=== PATIENT | male | born 1940 | race Caucasian/White ===

== ENCOUNTER → 2017-04-08 | Outpatient (CLI) | payer OTHER | LOC: RT 13:10 | PROVIDERS: ATTEND Psychiatry & Neurology Neurology | DX: R41.3 Other amnesia (principal) | CPT/HCPCS: 95819 ==

== ENCOUNTER → 2017-04-16 | Outpatient (CLI) | payer OTHER ==
--- NOTE | 2017-04-16 15:36 | MRI ---
HISTORY: Memory impairment Study: MRA head without contrast Comparison: None Technique: 3D [id number] magnetic resonance angiography. Findings: The distal vertebral arteries, basilar artery, posterior cerebral arteries are visualized. There is no evidence for aneurysm, occlusion, or rate limiting stenosis in the posterior circulation. The ca rotid siphons are normal bilaterally. The A1 segment, a 2 segment, M1 segment and M2 segments on the left are well visualized and demonstrate no evidence for aneurysm, occlusion, or rate limiting sten osis peer E a suggestion of a AC a aneurysm is not confirmed on the source images. The right M1 and M2 segments appear normal. The right A1 segment is absent likely congenital. 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 There is a patent anterior communicator. No aneurysm occlusion or rate limiting stenosis is ident ified. 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 Reported By:
== END ==
LOC: RAD 10:40
PROVIDERS: ATTEND Psychiatry & Neurology Neurology
DX: R41.3 Other amnesia (principal)
CPT/HCPCS: 70544

== ENCOUNTER → 2017-04-24 | Outpatient (CLI) | payer OTHER ==
--- NOTE | 2017-04-24 12:48 | US ---
HISTORY: Prior renal cancer Study: Renal ultrasound Comparison: None Technique: Multiple sonographic images of the kidneys were obtained. The region of the urinary blad yamini was evaluated as well. Findings: By history the right kidney has been surgically removed. The left kidney measures 13.7 x 6.7 x 7.6 cm. The left renal cortical thickness measures 1.6 cm cm. Multiple cysts are noted within the left kidney with the largest measuring approximately 4.6 x 4.8 c m. The urinary bladder is grossly unremarkable. IMPRESSION: 1. Right nephrectomy. 2. Left renal cyst as noted above. Reported By:
== END ==
LOC: RAD 10:42
PROVIDERS: ATTEND Urology
DX: N28.1 Cyst of kidney, acquired (principal); D41.01 Neoplasm of uncertain behavior of right kidney
CPT/HCPCS: 76770